=== PATIENT | female | born 1995 | race Caucasian/White ===

== ENCOUNTER 2021-07-10 12:42 | Emergency (ER) | payer OTHER ==
[~2021-07-10] VITALS: Ht 157.5 cm; Wt 63.5 kg
[2021-07-10 13:03] VITALS: BP 109/49
[2021-07-10] MEDS ORDERED: LIDOCAINE 1%HCL (LOCAL ANESTH) 10 ML MDV ONE (13:37)
[2021-07-10] MEDS ORDERED: LIDOCAINE 2%HCL (LOCAL ANESTH.) INJ 10ml MDV IJ ONE (13:45)
[2021-07-10] MEDS ORDERED: LIDOCAINE 1% HCL (LOCAL ANESTH.) INJ 20ML MDV IJ ONE (13:45)
[2021-07-10] MEDS ORDERED: CEPH-509 PO (13:55)
[2021-07-10] MEDS ORDERED: HYDR25CA PO (13:55)
== END 2021-07-10 13:58 | disposition home or self-care (01) ==
LOC: ER 12:42
DX: S51.812A Laceration without foreign body of left forearm, initial encounter (principal); Z79.899 Other long term (current) drug therapy; W26.8XXA Contact with other sharp object(s), not elsewhere classified, initial encounter; Y93.89 Activity, other specified; Y92.89 Other specified places as the place of occurrence of the external cause; Y99.8 Other external cause status
CPT/HCPCS: 12002; 99283; J2001